=== PATIENT | female | born 1995 | race Asian ===

== ENCOUNTER 2017-01-06 17:48 | Emergency (ER) | payer OTHER ==
[2017-01-06 17:54] VITALS: BP 131/83; PULSE 92; TEMP 36.7; O2SAT 99
[2017-01-06] MEDS ORDERED: DIPHTHERIA/TETANUS/PERTUSSIS 0.5 ML SYR/VIAL IM. ONE (18:15)
--- NOTE | 2017-01-07 10:56 | EMERGENCY ROOM VISIT NOTE ---
ED Visit Note First contact with patient: 17:54 CHIEF COMPLAINT: Finger laceration HISTORY OF PRESENT ILLNESS: This 21-year-old female patient presents to the emergency department after cutting the left second finger on a piece of metal earlier today. The bleeding has stopped. Denies weakness or numbness of the finger. The patient has full range of motion of the fingers. The patient rates the pain as dull and 7/10. The patient denies any other injuries. The patient' s tetanus shot is not up to date. REVIEW OF SYSTEMS: A 6 system review of systems was completed with positives and pertinent negatives listed in the HPI. ALLERGIES: No known allergies MEDICATIONS: No chronic medication PMH: Otherwise healthy SOCIAL HISTORY: Lives locally PHYSICAL EXAM: Vital Signs: Reviewed Nurse's notes, vital signs stable. GENERAL : female, in no acute distress, well developed, well nourished. SKIN: There is a superficial abrasion along the medial aspect of the left second finger. The wound does not gape. There is no foreign material in the wound and it looks clean. There is no significant bleeding. No deep structures such as tendons, bones, or significant blood vessels are seen in the base of the wound. Extension and flexion of the finger is full and strong. Full range of motion of the wrist and other fingers. Capillary refill less than 2 seconds. Normal sensation to light and sharp touch. EMERGENCY DEPARTMENT COURSE: I examined the patient. She appears to have a superficial abrasion to her left second finger. This wound does not require formal repair. The patient does not have an up-to-date tetanus, and this was provided here in the department. Her wound was dressed and she was invited back to the emergency department anytime with any new, worsening, or concerning symptoms. Current/Historical Medications No Active Prescriptions or Reported Meds Allergies Coded Allergies: No Known Allergies (Unverified , 01/06/17) Vital Signs Date Time Temp Pulse Resp B/P Pulse Ox O2 Delivery O2 Flow Rate FiO2 01/06/17 17:54 36.7 92 18 131/83 99 Room Air Medications Administered Medications (Trade) Dose Ordered Sig/Harmeet Route Start Time Stop Time Status Last Admin Dose Admin Diphtheria/ Pertussis/Tetanus Vacc (Adacel Inj) 0.5 ml ONCE ONCE IM. 01/06/17 18:15 01/06/17 18:16 DC 01/06/17 18:31 0.5 ML Departure Information Impression Primary Impression: Finger abrasion, non-infected Dispostion Home / Self-Care Condition GOOD Prescriptions No Active Prescriptions or Reported Meds Referrals No Doctor, Assigned (PCP) Forms WORK / SCHOOL INSTRUCTIONS, HOME CARE DOCUMENTATION FORM, IMPORTANT VISIT INFORMATION Patient Instructions My [facility] Additional Instructions You were seen and evaluated today on an emergency basis only. This is not a substitute for, or an effort to provide, complete comprehensive medical care. It is not possible to recognize and treat all injuries or illnesses in a single emergency department visit. For this reason it is recommended that you followup with your primary care physician with any ongoing or persisting complaints. You are welcome to return to the emergency department anytime with new, worsening, or concerning symptoms.
== END 2017-01-06 18:35 | disposition home or self-care (01) ==
LOC: C.EDB 17:51 → C.EDD 18:35
DX: S60.413A Abrasion of left middle finger, initial encounter (principal); W26.8XXA Contact with other sharp object(s), not elsewhere classified, initial encounter; Z23 Encounter for immunization